=== PATIENT | female | born 2000 | race Caucasian/White ===

== ENCOUNTER 2019-11-23 10:34 | Emergency (ER) | payer OTHER ==
[2019-11-23 10:43] VITALS: BP 132/82
[2019-11-23 10:53] LABS: BILIRUBIN,URINE NEGATIVE (NEGATIVE); GLUCOSE, URINE (UA) NEGATIVE (NEGATIVE); KETONES,URINE (UA) NEGATIVE (NEGATIVE); LEUKOCYTE ESTERASE, URINE NEGATIVE (NEGATIVE); NITRITE,URINE NEGATIVE (NEGATIVE); OCCULT BLOOD,URINE NEGATIVE (NEGATIVE); PROTEIN,URINE NEGATIVE (NEGATIVE); UROBILINOGEN,URINE 0.2 (NORMAL) E.U./dL (NORMAL)
[2019-11-23 10:57] LABS: CLARITY,URINE HAZY (CLEAR); HCG UR QUAL NEGATIVE
[2019-11-23 11:03] LABS: BACTERIA,URINE Rare /HPF (None Seen); RBC,URINE 0-5 /HPF (0-5); SQUAMOUS EPITHELIAL CELL,UR RARE Squamous (<= Few)
[2019-11-23] MEDS ORDERED: DEXAMETHASONE 10 MG/ML VIAL PO STA (12:16)
[2019-11-23] MEDS ORDERED: CHERRY SYRUP 10 ML UDC PO ONE (12:16)
--- NOTE | 2019-11-23 12:29 | ED Physician Documentation ---
PD HPI URI - Stated complaint Stated Complaint: VOMITING/COUGH - Chief complaint Chief Complaint: Resp - History obtained from History obtained from: Patient - History of Present Illness Timing - onset: How many weeks ago (2+) Timing duration: Weeks (2) Timing details: Gradual onset, Still present Associated symptoms: Nasal congestion, Rhinorrhea, Sore throat, Swollen nodes, Productive cough, Other (post tussive emesis) Improves by: Rest Similar symptoms before: Diagnosis (OM and bronchitis) Recently seen: Clinic - Additional information Additional information: 19-year-old female has developed a cough and congestion beginning about 2 weeks ago. She has had a bit of a sore throat that started later she has been into the clinic and has had a's rapid strep which was negative. She has have a prior history of otitis she is had tubes in as a child. She has had persistence of her symptoms and she is having some postnasal drainage she is coughing hard enough that she has had episodes of vomiting. She \does acknowledge some fullness to the right ear. Review of Systems Constitutional: denies: Fever Eyes: denies: Decreased vision Ears: reports: Ear pain Nose: reports: Rhinorrhea / runny nose, Congestion Throat: reports: Sore throat Cardiac: denies: Chest pain / pressure, Palpitations Respiratory: reports: Cough. denies: Dyspnea GI: reports: Vomiting PD PAST MEDICAL HISTORY - Past Medical History Past Medical History: Yes Other Past Medical History: bladder infections as a child - Past Surgical History Past Surgical History: No - Present Medications Home Medications: Ambulatory Orders Medication Instructions Recorded Confirmed Amox/Clav 875/125 [Augmentin] 1 each PO Q12H #20 tablet 11/23/19 Benzonatate [Tessalon Perle] 100 - 200 mg PO TID PRN #30 capsule 11/23/19 - Allergies Allergies/Adverse Reactions: Allergies Allergy/AdvReac Type Severity Reaction Status Date / Time oxybutynin [From Ditropan] Allergy Rash Verified 11/23/19 10:43 - Social History Does the pt smoke?: No Smoking Status: Never smoker Does the pt drink ETOH?: No Does the pt have substance abuse?: No - Immunizations Immunizations are current?: Yes PD ED PE NORMAL - Vitals Vital signs reviewed: Yes (hypertensive mild ) - General General: No acute distress, Well developed/nourished - HEENT HEENT: Atraumatic, PERRL, EOMI, Other (There is tympanosclerosis present bilaterally and there is erythema in the attic on the right side. The pharynx otherwise appears benign there is some postnasal drainage.) - Neck Neck: Supple, no meningeal sign, No bony TTP, Other (tender submandibular adenopathy ) - Cardiac Cardiac: RRR, No murmur - Respiratory Respiratory: No respiratory distress, Clear bilaterally - Abdomen Abdomen: Soft, Non tender - Back Back: No CVA TTP, No spinal TTP - Derm Derm: Normal color, Warm and dry, No rash - Extremities Extremities: No deformity, No edema, No calf tenderness / cord - Neuro Neuro: Alert and oriented X 3, claim trainee 2-12 intact, No motor deficit, No sensory deficit, Normal speech Eye Opening: Spontaneous Motor: Obeys Commands Verbal: Oriented GCS Score: 15 - Psych Psych: Normal mood, Normal affect Results - Vitals Vitals: Vital Signs - 24 hr 11/23/19 10:38 Temperature 36.4 C L Heart Rate 69 Respiratory 18 Rate Blood Pressure 132/82 H O2 Saturation 99 Oxygen O2 Source Room air - Labs Labs: Laboratory Tests 11/23/19 10:46 Urine Color YELLOW Urine Clarity HAZY Urine pH 6.0 Ur Specific [place] <=1.005 Urine Protein NEGATIVE Urine Glucose (UA) NEGATIVE Urine Ketones NEGATIVE Urine Occult Blood NEGATIVE Urine Nitrite NEGATIVE Urine Bilirubin NEGATIVE Urine Urobilinogen 0.2 (NORMAL) Ur Leukocyte Esterase NEGATIVE Urine RBC 0-5 Urine WBC 0-3 Ur Squamous Epith Cells RARE Squamous Urine Bacteria Rare Ur Microscopic Review INDICATED Urine Culture Comments NOT INDICATED Urine HCG, Qual NEGATIVE PD MEDICAL DECISION MAKING - ED course Complexity details: considered differential, d/w patient ED course: 19-year-old female with cough and congestion for past 2 weeks has a lot of postnasal drainage and is coughing hard enough to cause posttussive emesis. On examination she has minimal findings of inflammation with the exception of the right ear and the posterior pharynx. She is administered dexamethasone 10 mg orally and we will place her on some Augmentin. Departure - Departure Disposition: 01 Home, Self Care Clinical Impression: Otitis media Qualifiers: Otitis media type: suppurative Chronicity: acute Laterality: right Recurrence: non-recurrent Spontaneous tympanic membrane rupture: without spontaneous rupture Qualified Code(s): H66.001 - Acute suppurative otitis media without spontaneous rupture of ear drum, right ear Condition: Stable Instructions: ED Otitis Media Acute Adult Follow-Up: Adalid Turner MD [Primary Care Provider] - Prescriptions: Amox/Clav 875/125 [Augmentin] 1 each PO Q12H #20 tablet Benzonatate [Tessalon Perle] 100 - 200 mg PO TID PRN #30 capsule PRN Reason: Cough
== END 2019-11-23 12:45 | disposition home or self-care (01) ==
LOC: ED 10:34
DX: H66.001 Acute suppurative otitis media without spontaneous rupture of ear drum, right ear (principal); H74.03 Tympanosclerosis, bilateral
CPT/HCPCS: 81001; 81025; 99283; 99284; A9270; 81003; 87086

== ENCOUNTER 2019-12-25 13:21 | Emergency (ER) | payer OTHER ==
[2019-12-25 13:29] VITALS: BP 130/79
--- NOTE | 2019-12-25 13:40 | ED Physician Documentation ---
History of Present Illness - Stated complaint Stated Complaint: COUGH/TELLEZ - Chief complaint Chief Complaint: General - History obtained from History obtained from: Patient - History of Present Illness Timing: How many days ago (3) Pain level max: 3 Pain level now: 2 - Additonal information Additional information: 19-year-old female presents to the emergency department with intermittent subjective fevers, dry cough, nasal congestion, sore throat and vomiting for the past 2 to 3 days. No diarrhea. No constipation. Has not taken anything for this at home[place] for evaluation. Patient denies any possibility of . She is not breast- feeding. Not taken any medications at home. Nothing makes it better or worse. PD PAST MEDICAL HISTORY - Past Medical History Past Medical History: No - Past Surgical History Past Surgical History: No - Present Medications Home Medications: Ambulatory Orders Medication Instructions Recorded Confirmed Amox/Clav 875/125 [Augmentin] 1 each PO Q12H #20 tablet 11/23/19 Benzonatate [Tessalon Perle] 100 - 200 mg PO TID PRN #30 capsule 11/23/19 Benzonatate [Tessalon Perle] 100 - 200 mg PO TID PRN #30 capsule 12/25/19 Cetirizine HCl/Pseudoephedrine 1 each PO BID PRN #30 tab.er.12h 12/25/19 [Zyrtec-D Tablet] Ibuprofen [Motrin] 800 mg PO Q8H PRN #30 tablet 12/25/19 Ondansetron Odt [Zofran] 4 mg TL Q6H PRN #10 tablet 12/25/19 - Allergies Allergies/Adverse Reactions: Allergies Allergy/AdvReac Type Severity Reaction Status Date / Time oxybutynin [From Ditropan] Allergy Rash Verified 12/25/19 13:25 - Living Situation Living Arrangement: reports: At home - Social History Does the pt smoke?: No Smoking Status: Never smoker Does the pt drink ETOH?: No Does the pt have substance abuse?: No - Immunizations Immunizations are current?: Yes PD ED PE NORMAL - Vitals Vital signs reviewed: Yes - General General: Alert and oriented X 3, Well developed/nourished - HEENT HEENT: Ears normal, Moist mucous membranes, Pharynx benign - Neck Neck: Supple, no meningeal sign, No adenopathy - Cardiac Cardiac: RRR, Strong equal pulses - Respiratory Respiratory: No respiratory distress, Clear bilaterally - Abdomen Abdomen: Soft, Non tender, Non distended - Derm Derm: Warm and dry, No rash - Neuro Neuro: Alert and oriented X 3 - Psych Psych: Normal mood, Normal affect Results - Vitals Vitals: Vital Signs - 24 hr 12/25/19 13:25 Temperature 37.1 C Heart Rate 100 Respiratory 14 Rate Blood Pressure 130/79 O2 Saturation 98 Oxygen O2 Source Room air PD MEDICAL DECISION MAKING - ED course Complexity details: considered differential, d/w patient ED course: 19-year-old female presents to the emergency part with what appears to be a viral syndrome. She is well-appearing, nontoxic. Afebrile. No hypoxia. No respiratory distress. We will continue supportive care and have her follow-up with her doctor for further care. No evidence of pneumonia, sepsis. Patient counseled regarding signs and symptoms for which I believe and urgent re- evaluation would be necessary. Patient with good understanding of and agreement to plan and is comfortable going home at this time This document was made in part using voice recognition software. While efforts are made to proofread this document, sound alike and grammatical errors may occur. Departure - Departure Disposition: 01 Home, Self Care Clinical Impression: Viral URI with cough Condition: Good Instructions: ED Viral Syndrome Follow-Up: ADRIAN Franco [Provider Group] (in 7-10 days if not better) Prescriptions: Benzonatate [Tessalon Perle] 100 - 200 mg PO TID PRN #30 capsule PRN Reason: Cough Cetirizine HCl/Pseudoephedrine [Zyrtec-D Tablet] 1 each PO BID PRN #30 tab.er.12h PRN Reason: nasal congestion Ibuprofen [Motrin] 800 mg PO Q8H PRN #30 tablet PRN Reason: PAIN &/OR FEVER Ondansetron Odt [Zofran] 4 mg TL Q6H PRN #10 tablet PRN Reason: Nausea / Vomiting Comments: Use the medications as needed. Return if you worsen. This should improve over the next [address] [facility], do not return to work or school until your symptoms have subsided for at least 24 hours. Forms: Activity restrictions
== END 2019-12-25 13:45 | disposition home or self-care (01) ==
LOC: ED 13:21
DX: J06.9 Acute upper respiratory infection, unspecified (principal)
CPT/HCPCS: 99281; 99284

== ENCOUNTER 2022-02-23 18:51 | Emergency (ER) | payer OTHER ==
[2022-02-23] MEDS ORDERED: SODIUM CHLORIDE 0.9% 1,000 ML IV STA (19:30)
[2022-02-23] MEDS ORDERED: KETOROLAC 30 MG/ML VIAL IVP STA (19:30)
[2022-02-23 19:50] LABS: BASOPHILS % (AUTO) 0.3 %; EOSINOPHILS % (AUTO) 0.3 %; HCT - HEMATOCRIT 38.6 % (37.0-47.0); HGB - HEMOGLOBIN 13.2 g/dL (12.0-16.0); LYMPHOCYTES # (AUTO) 1.6 10^3/uL (1.5-3.5); LYMPHOCYTES % (AUTO) 17.9 %; MEAN CORPUSCULAR HEMOGLOBIN 27.3 pg (27.0-31.0); MEAN CORPUSCULAR HGB CONC 34.2 g/dL (32.0-36.0); MEAN CORPUSCULAR VOLUME 79.8 fL (81.0-99.0); MEAN PLATELET VOLUME 9.6 fL (7.9-10.8); MONOCYTES % (AUTO) 11.1 %; NEUTROPHILS # (AUTO) 6.3 10^3/uL (1.5-6.6); NEUTROPHILS % (AUTO) 70.2 %; PLT - PLATELET COUNT 231 10^3/uL (130-450); RED BLOOD COUNT 4.84 10^6/uL (4.20-5.40); RED CELL DISTRIBUTION WIDTH 12.2 % (12.0-15.0)
--- NOTE | 2022-02-23 19:52 | ED Physician Documentation ---
History of Present Illness - Stated complaint Stated Complaint: COUGH,RUNNY NOSE,BLOOD IN STOOL - Chief complaint Chief Complaint: General - History obtained from History obtained from: Patient - Additonal information Additional information: Patient is a 22-year-old female with no significant past medical history presenting for evaluation of blood in her stools that she noticed this evening. She reports having normal colored stools with dark red blood mixed in with it. She also reported having sharp left upper abdominal pain at that also started this evening. She is recently been ill with cough productive of clear phlegm, nasal congestion and sore throat since Wednesday. She denies fever, difficulty breathing or chest pain. No nausea or vomiting. Denies being constipated or diarrhea. Denies dysuria. She is on her menstrual cycle.She has taken a few home COVID test which have been negative. She is not taking other medications. She denies a previous history of blood in her stools.She does not take any blood thinners. Review of Systems Constitutional: denies: Fever Nose: reports: Congestion Throat: reports: Sore throat Cardiac: denies: Chest pain / pressure Respiratory: reports: Cough. denies: Dyspnea GI: reports: Abdominal Pain, Bloody / black stool. denies: Vomiting, Diarrhea : denies: Dysuria Skin: denies: Rash Musculoskeletal: denies: Back pain Neurologic: denies: Headache PD PAST MEDICAL HISTORY - Past Medical History Past Medical History: Yes Psych: ADD/ADHD - Past Surgical History Past Surgical History: No - Present Medications Home Medications: Ambulatory Orders Medication Instructions Recorded Confirmed Dextroamphetamine/Amphetamine 10 mg PO DAILY 02/23/22 02/23/22 [Dextroamp-Amphetamine 5 mg Tab] - Allergies Allergies/Adverse Reactions: Allergies Allergy/AdvReac Type Severity Reaction Status Date / Time oxybutynin [From Ditropan] Allergy Rash Verified 02/23/22 18:56 - Social History Does the pt smoke?: No Smoking Status: Never smoker Does the pt drink ETOH?: No Does the pt have substance abuse?: No - Immunizations Immunizations are current?: Yes PD ED PE NORMAL - General General: Alert and oriented X 3, No acute distress, Well developed/nourished - HEENT HEENT: Atraumatic, Ears normal, Moist mucous membranes, Pharynx benign (No oral swelling or exudate, normal voice) - Neck Neck: Supple, no meningeal sign, No adenopathy - Cardiac Cardiac: No murmur, Strong equal pulses (Tachycardic, regular rhythm) - Respiratory Respiratory: No respiratory distress, Clear bilaterally - Abdomen Abdomen: Normal bowel sounds, Soft, Non distended, Other (Mild left upper quadrant tenderness, No rebound no guarding) - Rectal Rectal: Other (Chaperoned by RAMOS Nathan. Normal external exam, normal colored stool with no palpable masses, normal rectal tone, no tenderness on exam) - Back Back: No CVA TTP - Derm Derm: Warm and dry - Extremities Extremities: No edema - Neuro Neuro: Alert and oriented X 3, No motor deficit, Normal speech - Psych Psych: Normal mood Results - Vitals Vitals: Vital Signs - 24 hr 02/23/22 02/23/22 02/23/22 18:56 20:05 20:56 Temperature 36.5 C 37.0 C Heart Rate 116 H 86 84 Respiratory 16 19 24 Rate Blood Pressure 144/81 H 125/72 111/68 O2 Saturation 98 100 98 02/23/22 21:30 Temperature 37 C Heart Rate 78 Respiratory 21 Rate Blood Pressure 118/62 O2 Saturation 99 Oxygen O2 Source Room air - EKG (time done) 2003 Rate: Rate (enter#) (95) Rhythm: NSR [place]: Normal Ischemia: Non specific changes (T wave flattening in III, V2 and V3). No: ST elevation c/w ischemia - Labs Labs: Microbiology 02/23/22 19:30 Occult Blood - Final Stool Laboratory Tests 02/23/22 02/23/22 02/23/22 19:35 19:35 19:40 WBC 9.0 RBC 4.84 Hgb 13.2 Hct 38.6 MCV 79.8 L MCH 27.3 MCHC 34.2 RDW 12.2 Plt Count 231 MPV 9.6 Neut # (Auto) 6.3 Lymph # (Auto) 1.6 [place] # (Auto) 1.0 Eos # (Auto) 0.0 Baso # (Auto) 0.0 Absolute Nucleated RBC 0.00 Nucleated RBC % 0.0 Sodium Potassium Chloride Carbon Dioxide Anion Gap BUN Creatinine Estimated GFR (MDRD) Glucose Calcium Total Bilirubin AST ALT Alkaline Phosphatase Total Protein Albumin Globulin Albumin/Globulin Ratio Lipase Urine HCG, Qual NEGATIVE Group A Strep Rapid Negative 02/23/22 19:40 WBC RBC Hgb Hct MCV MCH MCHC RDW Plt Count MPV Neut # (Auto) Lymph # (Auto) [place] # (Auto) Eos # (Auto) Baso # (Auto) Absolute Nucleated RBC Nucleated RBC % Sodium 136 Potassium 3.6 Chloride 102 Carbon Dioxide 26 Anion Gap 8.0 BUN 13 Creatinine 0.9 Estimated GFR (MDRD) 78 L Glucose 87 Calcium 9.1 Total Bilirubin 0.7 AST 15 ALT 12 Alkaline Phosphatase 66 Total Protein 6.8 Albumin 3.9 Globulin 2.9 Albumin/Globulin Ratio 1.3 Lipase 36 Urine HCG, Qual Group A Strep Rapid PD MEDICAL DECISION MAKING - ED course Complexity details: reviewed results, re-evaluated patient, d/w patient ED course: Patient is a 22 old female presenting for evaluation of abdominal pain with hematochezia as well as upper respiratory infection symptoms. In regards to her abdominal pain and blood in stools, Hemoccult was positive but no gross blood on exam. A CT scan with questionable colitis. Labs are reassuring. Reviewed these findings with patient. Do not think colitis is bacterial and discussed continuing with supportive care. Patient is aware That she should have a GI referral for possible colonoscopy given blood in her stools as well as aware of return precautions. In regards to her cough and congestion, patient's lung sounds are clear and chest x-ray does not reveal consolidation. Patient does not appear septic. She was slightly tachycardic upon arrival which improved with IV fluids.Do not think her symptoms suggest a pulmonary embolism.COVID swab was obtained. Patient was feeling better in the emergency department. Again discussed continuing with supportive care as well as need for close follow-up. Departure - Departure Disposition: 01 Home, Self Care Clinical Impression: Hematochezia, Viral pharyngitis, Colitis Upper respiratory infection Qualifiers: URI type: unspecified URI Qualified Code(s): J06.9 - Acute upper respiratory infection, unspecified Condition: Stable Instructions: ED Hematochezia Stable, ED Pharyngitis Viral Comments: Hayde - You were evaluated for blood in your stool and abdominal pain. Your labs are reassuring and your hemoglobin (Blood levels) Were stable. You had a CT scan of your abdomen and pelvis which showed some mild inflammation in the lower part of your colon. This could be the source of the blood in your stools.You do need close follow-up with your primary care doctor. You likely need a referral to a publicity consultant and you may need a colonoscopy. You were also evaluated for a cough and congestion. Your strep test was negative. You have a COVID test that is pending. Your chest x-ray was clear and does not show pneumonia.You were given a dose of a steroid to help with the inflammation in your throat and may also help with your cough. Please use [id number] saline spray to help relieve nasal congestion. This may helpYour sore throat and cough as the drainage will be expelled from the nose and not running down the back of your throat. If anytime you have any worsening symptoms such as difficulty breathing, chest pain, worsening abdominal pain, more bleeding, dizziness or have other concerns please return to the emergency department. Your CT scan showed the following. IMPRESSION: 1. Mild segmental wall thickening and sigmoid colon suggestive of a mild colitis. 2. Colonic diverticulosis without acute diverticulitis. 3. Nonspecific splenomegaly. You have a Covid test pending. You need to self quarantine until the result is done and negative. Do not leave your house. Do not get near anybody. The results should be done in 48 to 72 hours. We will call with a positive result, the fastest way to get a negative result for confirmation though is to go to the hospital website at [email or web address], click on the my [email or web address] tab and sign up for the patient portal. If any friends or family get sick and would like to have a Covid test done, but do not have signs or symptoms that would necessitate being hospitalized, there are multiple local options for Covid testing. [facility] keeps an updated list of testing and vaccination options at: [email or web address]. Discharge Date/Time: 02/23/22 21:35
[2022-02-23 20:02] LABS: HCG UR QUAL NEGATIVE
--- NOTE | 2022-02-23 20:05 | XRAY Report ---
PROCEDURE: Chest 1 View X-Ray INDICATIONS: cough TECHNIQUE: One view of the chest was acquired. COMPARISON: None. FINDINGS: Surgical changes and devices: None. Lungs and pleura: No pleural effusions or pneumothorax. Lungs are clear. Mediastinum: Mediastinal contours appear normal. Heart size is normal. Bones and chest wall: No suspicious bony lesions. Overlying soft tissues appear unremarkable. IMPRESSION: 1. No acute cardiopulmonary disease. Reviewed by: Kar Baum MD on 02/23/2022 8:03 PM PDT Approved by: Kar Baum MD on 02/23/2022 8:03 PM PDT Station ID: [id number]
[2022-02-23 20:10] LABS: RAPID STREP SCREEN Negative (Negative)
[2022-02-23 20:10] LABS: ALBUMIN 3.9 g/dL (3.2-5.5); ALBUMIN/GLOBULIN RATIO 1.3 (1.0-2.2); BILIRUBIN,TOTAL 0.7 mg/dL (0.2-1.0); CALCIUM 9.1 mg/dL (8.5-10.3); CREATININE 0.9 mg/dL (0.4-1.0); POTASSIUM 3.6 mmol/L (3.5-5.0); TOTAL PROTEIN 6.8 g/dL (6.7-8.2)
[2022-02-23] MEDS ORDERED: IOVERSOL 320 50 ML VIAL ONE (20:31)
--- NOTE | 2022-02-23 21:08 | CT Report ---
PROCEDURE: Abdomen/Pelvis W INDICATIONS: hematochezia/abd pain CONTRAST: IV CONTRAST: Optiray 320 ml: 100 PO CONTRAST: *NO PO CONTRAST TECHNIQUE: After the administration of intravenous contrast, 5 mm thick sections acquired from the diaphragms to the symphysis. 5 mm thick coronal and sagittal reformats were acquired. For radiation dose reducti on, the following was used: automated exposure control, adjustment of mA and/or kV according to girma ent size. COMPARISON: None. FINDINGS: Image quality: Excellent. ABDOMEN: Lung bases: There are indistinct groundglass opacities inferiorly in the left lower lobe along the le ft hemidiaphragm suggestive of atelectasis versus a mild infectious or inflammatory process. Heart si ze is normal. Solid organs: Evaluation of the liver demonstrates no focal hepatic lesions. Gallbladder appears with in normal limits without calcified gallstones. Biliary system is non dilated. The spleen is enlarged, measuring up to 14.4 cm Pancreas enhances normally without peripancreatic fat stranding or fluid col lections. No adrenal nodules. Kidneys demonstrate no hydronephrosis. Peritoneum and bowel: Small bowel loops demonstrate normal wall thickness and caliber. The appendix i s normal in appearance. There is colonic diverticulosis without acute diverticulitis. There is mild s egmental wall thickening in the sigmoid colon suggestive of a mild colitis. No free fluid or air. Nodes and vessels: No retroperitoneal or mesenteric adenopathy by size criteria. Aorta and inferior vena cava are normal in size. Miscellaneous: No ventral hernias. PELVIS: Genitourinary: Bladder wall thickness is normal. Miscellaneous: No inguinal hernias or adenopathy. Bones: No suspicious bony lesions. No vertebral body compression fractures. IMPRESSION: 1. Mild segmental wall thickening and sigmoid colon suggestive of a mild colitis. 2. Colonic diverticulosis without acute diverticulitis. 3. Nonspecific splenomegaly. Reviewed by: Kar Baum MD on 02/23/2022 9:07 PM PDT Approved by: Kar Baum MD on 02/23/2022 9:07 PM PDT Station ID: [id number]
[2022-02-23] MEDS ORDERED: DEXAMETHASONE 10 MG/ML VIAL PO STA (21:13)
[2022-02-23] MEDS ORDERED: CHERRY SYRUP 10 ML UDC PO ONE (21:13)
[2022-02-23] MEDS ORDERED: IOVERSOL 320 50 ML VIAL IV ONE (21:24)
[2022-02-23 21:32] VITALS: BP 118/62
== END 2022-02-23 21:35 | disposition home or self-care (01) ==
LOC: ED 18:51
DX: K92.1 Melena (principal); J02.8 Acute pharyngitis due to other specified organisms; K52.9 Noninfective gastroenteritis and colitis, unspecified; J06.9 Acute upper respiratory infection, unspecified; Z20.822 Contact with and (suspected) exposure to COVID-19
CPT/HCPCS: 36415; 71045; 74177; 80053; 81025; 82272; 83690; 85025; 87070; 87430; 87635; 93005; 96361; 96374; 99284; A9270

== ENCOUNTER 2023-01-07 16:30 | Outpatient (CLI) | payer OTHER ==
--- NOTE | 2023-01-08 16:58 | XRAY Report ---
PROCEDURE: Chest 2 View X-Ray INDICATIONS: ACUTE COUGH TECHNIQUE: 2 views of the chest were acquired. COMPARISON: 02/23/2022. FINDINGS: Surgical changes and devices: None. Lungs and pleura: No pleural effusions or pneumothorax. Lungs are clear. Mediastinum: Mediastinal contours appear normal. Heart size is normal. Bones and chest wall: No suspicious bony lesions. Overlying soft tissues appear unremarkable. IMPRESSION: No acute cardiopulmonary pathology. Reviewed by: Chaz Griffin MD on 01/08/2023 4:56 PM PDT Approved by: Chaz Griffin MD on 01/08/2023 4:56 PM PDT Station ID: [id number]
== END 2023-01-07 16:31 | disposition home or self-care (01) ==
LOC: DI 16:30
PROVIDERS: ATTEND Registered Nurse
DX: R05.1 Acute cough (principal)

== ENCOUNTER 2023-02-08 07:08 | Emergency (ER) | payer OTHER ==
--- NOTE | 2023-02-08 09:10 | ED Physician Documentation ---
PD HPI URI - Stated complaint Stated Complaint: C+ - Chief complaint Chief Complaint: Resp - History obtained from History obtained from: Patient - Additional information Additional information: She had COVID a couple months ago. Her became symptomatic with COVID yesterday and she has congestion and would like a test. She did take paxlovid when she was sick last time with COVID and did not tolerate it well and would not like to repeat it if she is positive. She does want something for the chest burning and congestion. PD PAST MEDICAL HISTORY - Past Medical History Psych: ADD/ADHD - Past Surgical History Past Surgical History: No - Present Medications Home Medications: Ambulatory Orders Medication Instructions Recorded Confirmed Dextroamphetamine/Amphetamine 10 mg PO DAILY 02/23/22 02/23/22 [Dextroamp-Amphetamine 5 mg Tab] Benzonatate [Tessalon] 200 mg PO TID PRN #20 cap 02/08/23 Guaifenesin/Pseudoephedrne HCl 1 each PO BID PRN #20 tab 02/08/23 [Mucinex D ER 600-60 mg Tablet] Ibuprofen [Motrin] 800 mg PO Q8H PRN #30 tablet 02/08/23 - Allergies Allergies/Adverse Reactions: Allergies Allergy/AdvReac Type Severity Reaction Status Date / Time oxybutynin [From Ditropan] Allergy Rash Verified 02/08/23 07:18 - Social History Does the pt smoke?: No Smoking Status: Never smoker Does the pt drink ETOH?: No Does the pt have substance abuse?: No - Immunizations Immunizations are current?: Yes - POLST Patient has POLST: No PD ED PE NORMAL - Vitals Vital signs reviewed: Yes - General General: Alert and oriented X 3, No acute distress - Respiratory Respiratory: No respiratory distress - Derm Derm: No rash - Neuro Neuro: Alert and oriented X 3, Normal speech Results - Vitals Vitals: Vital Signs - 24 hr 02/08/23 02/08/23 07:18 09:20 Temperature 36.4 C L 36.4 C L Heart Rate 91 81 Respiratory 18 18 Rate Blood Pressure 119/79 120/72 O2 Saturation 98 99 Oxygen O2 Source Room air - Labs Labs: Laboratory Tests 02/08/23 09:10 SARS-CoV-2 (PCR) NOT DETECTED Departure - Departure Disposition: 01 Home, Self Care Clinical Impression: Upper respiratory tract infection Qualifiers: URI type: unspecified viral URI Qualified Code(s): J06.9 - Acute upper respira tory infection, unspecified Condition: Good Record reviewed to determine appropriate education?: Yes Instructions: ED Viral Syndrome Prescriptions: Ibuprofen [Motrin] 800 mg PO Q8H PRN #30 tablet PRN Reason: PAIN &/OR FEVER Guaifenesin/Pseudoephedrne HCl [Mucinex D ER 600-60 mg Tablet] 1 each PO BID PRN #20 tab PRN Reason: congestion Benzonatate [Tessalon] 200 mg PO TID PRN #20 cap PRN Reason: Cough Comments: You have a COVID test pending, we will call you over the next few hours if it is positive. Return for new or worsening symptoms. Discharge Date/Time: 02/08/23 09:20
[2023-02-08 09:21] VITALS: BP 120/72
== END 2023-02-08 09:20 | disposition home or self-care (01) ==
LOC: ED 07:08
DX: J06.9 Acute upper respiratory infection, unspecified (principal); Z20.822 Contact with and (suspected) exposure to COVID-19
CPT/HCPCS: 99282; 99283

== ENCOUNTER 2023-05-05 17:54 | Emergency (ER) | payer OTHER ==
[2023-05-05] MEDS ORDERED: ACETAMINOPHEN 500 MG TABLET PO STA (18:28)
--- NOTE | 2023-05-05 18:28 | ED Physician Documentation ---
PD HPI ABD PAIN - Stated complaint Stated Complaint: PREG/ABD PX/CONSTIPATION - Chief complaint Chief Complaint: Abd Pain - History obtained from History obtained from: Patient - Additional information Additional information: This is a G1 who is at unknown stage of . Last true menses was in January but also had some spotting in February. She is been constipated for several days. Has not taken anything for it other than prune juice as she is scared to take anything although had read that MiraLAX was safe. Over the last 5 days has developed some right lower quadrant pain and burning with urination. Went to walk-in clinic where reported [place] her urine was normal. No cramping or bleeding. PD PAST MEDICAL HISTORY - Past Medical History Past Medical History: Yes Psych: ADD/ADHD - Past Surgical History Past Surgical History: No - Present Medications Home Medications: Ambulatory Orders Medication Instructions Recorded Confirmed Nitrofurantoin [Macrobid] 1 cap PO BID #10 cap 05/05/23 No122/Iron/Folic Acid 1 each PO DAILY 05/05/23 05/05/23 [ Multi Tablet] - Allergies Allergies/Adverse Reactions: Allergies Allergy/AdvReac Type Severity Reaction Status Date / Time oxybutynin [From Ditropan] Allergy Rash Verified 05/05/23 18:07 - Social History Does the pt smoke?: No Smoking Status: Never smoker Does the pt drink ETOH?: No Does the pt have substance abuse?: No - Immunizations Immunizations are current?: Yes - POLST Patient has POLST: No PD ED PE NORMAL - Vitals Vital signs reviewed: Yes - General General: Alert and oriented X 3, No acute distress - Abdomen Abdomen: Normal bowel sounds, Soft, Non tender - Neuro Neuro: Alert and oriented X 3, Normal speech Results - Vitals Vitals: Vital Signs - 24 hr 05/05/23 05/05/23 05/05/23 18:03 19:50 21:00 Temperature 36.7 C Heart Rate 100 84 85 Respiratory 18 16 16 Rate Blood Pressure 139/84 H 123/73 125/73 O2 Saturation 100 100 100 Oxygen O2 Source Room air - Labs Labs: Laboratory Tests 05/05/23 05/05/23 05/05/23 18:25 18:25 18:25 WBC 9.6 RBC 4.86 Hgb 12.9 Hct 38.1 MCV 78.4 L MCH 26.5 L MCHC 33.9 RDW 12.3 Plt Count 279 MPV 9.4 Neut # (Auto) 6.3 Lymph # (Auto) 2.6 [place] # (Auto) 0.6 Eos # (Auto) 0.0 Baso # (Auto) 0.0 Absolute Nucleated RBC 0.00 Nucleated RBC % 0.0 Sodium 134 L Potassium 3.9 Chloride 102 Carbon Dioxide 26 Anion Gap 6.0 BUN 12 Creatinine 0.6 Estimated GFR (MDRD) 123 Glucose 91 Calcium 9.7 Beta HCG, Quant 51822.6 Urine Color Urine Clarity Urine pH Ur Specific [place] Urine Protein Urine Glucose (UA) Urine Ketones Urine Occult Blood Urine Nitrite Urine Bilirubin Urine Urobilinogen Ur Leukocyte Esterase Urine RBC Urine WBC Ur Squamous Epith Cells Urine Bacteria Ur Microscopic Review Urine Culture Comments Urine HCG, Qual 05/05/23 05/05/23 18:33 18:33 WBC RBC Hgb Hct MCV MCH MCHC RDW Plt Count MPV Neut # (Auto) Lymph # (Auto) [place] # (Auto) Eos # (Auto) Baso # (Auto) Absolute Nucleated RBC Nucleated RBC % Sodium Potassium Chloride Carbon Dioxide Anion Gap BUN Creatinine Estimated GFR (MDRD) Glucose Calcium Beta HCG, Quant Urine Color YELLOW Urine Clarity CLEAR Urine pH 5.5 Ur Specific [place] <=1.005 Urine Protein NEGATIVE Urine Glucose (UA) NEGATIVE Urine Ketones TRACE Urine Occult Blood NEGATIVE Urine Nitrite NEGATIVE Urine Bilirubin NEGATIVE Urine Urobilinogen 0.2 (NORMAL) Ur Leukocyte Esterase SMALL H Urine RBC 0-5 Urine WBC 6-10 H Ur Squamous Epith Cells FEW Squamous Urine Bacteria Rare Ur Microscopic Review INDICATED Urine Culture Comments INDICATED Urine HCG, Qual POSITIVE - Rads (name of study) OB Sono Relevant Findings:: Prelim report reviewed, Final report received, EMP independent interpretation of test PD Medical Decision Making - ED course ED course: 23yo with constipation and sx UTI/ Pos UA here. CBC/BMP nl OB sono showing live IUP 7w, d/w pt. Tx miralax and macrobid. Departure - Departure Disposition: 01 Home, Self Care Clinical Impression: Cystitis, 7 weeks gestation of Abdominal pain Qualifiers: Abdominal location: right lower quadrant Qualified Code(s): R10.31 - Right lower quadrant pain Constipation Qualifiers: Constipation type: slow transit constipation Qualified Code(s): K59.01 - Slow transit constipation Condition: Good Record reviewed to determine appropriate education?: Yes Instructions: ED Constipation, ED UTI Cystitis Female Prescriptions: Nitrofurantoin [Macrobid] 1 cap PO BID #10 cap Comments: Today you did have mild evidence of UTI and I am prescribing antibiotics for this. We will perform a urine culture and if a change in antibiotics is necessary we will call you. 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 Returning if worse. You can take MiraLAX per package instructions [id number] for the constipation and drink plenty of fluids. Discharge Date/Time: 05/05/23 21:08
[2023-05-05 18:34] LABS: BASOPHILS % (AUTO) 0.4 %; EOSINOPHILS % (AUTO) 0.3 %; HCT - HEMATOCRIT 38.1 % (37.0-47.0); HGB - HEMOGLOBIN 12.9 g/dL (12.0-16.0); LYMPHOCYTES # (AUTO) 2.6 10^3/uL (1.5-3.5); LYMPHOCYTES % (AUTO) 27.2 %; MEAN CORPUSCULAR HEMOGLOBIN 26.5 pg (27.0-31.0); MEAN CORPUSCULAR HGB CONC 33.9 g/dL (32.0-36.0); MEAN CORPUSCULAR VOLUME 78.4 fL (81.0-99.0); MEAN PLATELET VOLUME 9.4 fL (7.9-10.8); MONOCYTES # (AUTO) 0.6 10^3/uL (0.0-1.0); MONOCYTES % (AUTO) 6.3 %; NEUTROPHILS # (AUTO) 6.3 10^3/uL (1.5-6.6); NEUTROPHILS % (AUTO) 65.5 %; PLT - PLATELET COUNT 279 10^3/uL (130-450); RED BLOOD COUNT 4.86 10^6/uL (4.20-5.40); RED CELL DISTRIBUTION WIDTH 12.3 % (12.0-15.0); WHITE BLOOD COUNT 9.6 x10^3/uL (4.8-10.8)
[2023-05-05 18:39] LABS: HCG UR QUAL POSITIVE
[2023-05-05 18:50] LABS: CALCIUM 9.7 mg/dL (8.5-10.3); CREATININE 0.6 mg/dL (0.6-1.3); POTASSIUM 3.9 mmol/L (3.5-4.5)
[2023-05-05 19:13] LABS: BILIRUBIN,URINE NEGATIVE (NEGATIVE); GLUCOSE, URINE (UA) NEGATIVE (NEGATIVE); KETONES,URINE (UA) TRACE mg/dL (NEGATIVE); LEUKOCYTE ESTERASE, URINE SMALL (NEGATIVE); NITRITE,URINE NEGATIVE (NEGATIVE); OCCULT BLOOD,URINE NEGATIVE (NEGATIVE); PH,URINE 5.5 PH (5.0-7.5); PROTEIN,URINE NEGATIVE (NEGATIVE); UROBILINOGEN,URINE 0.2 (NORMAL) E.U./dL (NORMAL)
[2023-05-05 19:19] LABS: CLARITY,URINE CLEAR (CLEAR)
[2023-05-05 19:25] LABS: BACTERIA,URINE Rare /HPF (None Seen); RBC,URINE 0-5 /HPF (0-5); SQUAMOUS EPITHELIAL CELL,UR FEW Squamous (<= Few)
[2023-05-05] MEDS ORDERED: NITROFURANTOIN MACRO 100 MG CAPSULE PO STA (20:52)
[2023-05-05 21:06] VITALS: BP 125/73
--- NOTE | 2023-05-05 22:08 | Ultrasound Report ---
PROCEDURE: OB First Trimester w/TV INDICATIONS: preg abd pain OUTSIDE/PRIOR DATING DATA: Last menstrual period (LMP): 02/04/2023. LMP-based estimated date of delivery (GEOVANI): 11/11/2023. TECHNIQUE: Real-time scanning was performed of the fetus and maternal pelvic organs, with image documentation. Endovaginal scanning was also performed to better visualize the fetus and maternal ovaries. COMPARISON: None. FINDINGS: Embryo: There is an intrauterine with a gestational sac, yolk sac, and pole identifi ed. The crown-rump length measures 0.9 cm corresponding to a gestational age of 7 weeks 0 days. There is heart motion with a rate of 1 29 bpm. Other: A small perigestational subchorionic hematomas demonstrated measuring 1.7 x 0.7 x 1.47 m.. Measurement variability in dating: +/- 4 weeks by LMP, +/- 7 days by mean sac diameter (use before 6 weeks gestation if crown-rump length not able to be measured), +/- 5 days by crown-rump length (6-12 weeks gestation). Maternal organs: Ovaries appear within normal limits. A small hypoechoic structure compatible with a corpus luteal cyst is noted within the right ovary. IMPRESSION: 1. Single living intrauterine with calculated gestational age of 7 weeks 0 days correspondi ng to an estimated delivery date of 12/22/2023, discordant with patient's dates by LMP. Reviewed by: Kar Baum MD on 05/05/2023 10:07 PM PDT Approved by: Kar Baum MD on 05/05/2023 10:07 PM PDT Station ID: [id number]
== END 2023-05-05 21:08 | disposition home or self-care (01) ==
LOC: ED 17:54
DX: O23.11 Infections of bladder in pregnancy, first trimester (principal); Z3A.01 Less than 8 weeks gestation of pregnancy; O26.91 Pregnancy related conditions, unspecified, first trimester; K59.00 Constipation, unspecified
CPT/HCPCS: 36415; 76801; 76817; 80048; 81001; 81025; 84702; 85025; 87077; 87086; 87181; 99284; A9270; 81003

== ENCOUNTER 2024-04-16 21:41 | Emergency (ER) | payer OTHER ==
[2024-04-16 22:16] LABS: BASOPHILS % (AUTO) 0.4 %; EOSINOPHILS # (AUTO) 0.1 10^3/uL (0.0-0.7); HCT - HEMATOCRIT 41.1 % (37.0-47.0); HGB - HEMOGLOBIN 12.7 g/dL (12.0-16.0); LYMPHOCYTES # (AUTO) 2.9 10^3/uL (1.5-3.5); MEAN CORPUSCULAR HEMOGLOBIN 22.7 pg (27.0-31.0); MEAN CORPUSCULAR HGB CONC 30.9 g/dL (32.0-36.0); MEAN CORPUSCULAR VOLUME 73.4 fL (81.0-99.0); MEAN PLATELET VOLUME 9.2 fL (7.9-10.8); MONOCYTES # (AUTO) 0.5 10^3/uL (0.0-1.0); MONOCYTES % (AUTO) 6.1 %; NEUTROPHILS # (AUTO) 4.9 10^3/uL (1.5-6.6); NEUTROPHILS % (AUTO) 58.3 %; PLT - PLATELET COUNT 288 10^3/uL (130-450); RED CELL DISTRIBUTION WIDTH 13.8 % (12.0-15.0); WHITE BLOOD COUNT 8.4 x10^3/uL (4.8-10.8)
[2024-04-16 22:19] LABS: BILIRUBIN,URINE NEGATIVE (NEGATIVE); GLUCOSE, URINE (UA) NEGATIVE (NEGATIVE); KETONES,URINE (UA) NEGATIVE (NEGATIVE); LEUKOCYTE ESTERASE, URINE NEGATIVE (NEGATIVE); NITRITE,URINE NEGATIVE (NEGATIVE); OCCULT BLOOD,URINE NEGATIVE (NEGATIVE); PH,URINE 6.5 PH (5.0-7.5); PROTEIN,URINE NEGATIVE (NEGATIVE); UROBILINOGEN,URINE 0.2 (NORMAL) E.U./dL (NORMAL)
[2024-04-16 22:22] LABS: CLARITY,URINE CLEAR (CLEAR); HCG UR QUAL NEGATIVE
[2024-04-16 22:43] LABS: ALBUMIN 4.7 g/dL (3.2-5.5); ALBUMIN/GLOBULIN RATIO 1.9 (1.0-2.2); BILIRUBIN,TOTAL 0.4 mg/dL (0.2-1.0); CALCIUM 10.2 mg/dL (8.5-10.3); CREATININE 0.9 mg/dL (0.6-1.3); POTASSIUM 3.7 mmol/L (3.5-4.5); TOTAL PROTEIN 7.2 g/dL (6.4-8.9)
[2024-04-17] MEDS: SODIUM CHLORIDE 0.9% 1,000 ML IV STA (00:25)
[2024-04-17] MEDS: KETOROLAC 30 MG/ML VIAL IVP STA (00:25)
[2024-04-17] MEDS: HYDROmorphone 1 MG/ML CARPUJECT IVP STA (00:25)
--- NOTE | 2024-04-17 01:12 | CT Report ---
PROCEDURE: Abdomen/Pelvis WO INDICATIONS: L flank and lower quad pain TECHNIQUE: A CT scan of the abdomen and pelvis was performed without the use of intravenous contrast. Images we re recorded and evaluated at appropriate window settings. Reformats: coronal and sagittal. For radiat ion dose reduction, the following was used: automated exposure control, adjustment of mA and/or kV ac cording to patient size. COMPARISON: CT abdomen pelvis with contrast 02/23/2022. FINDINGS: Image quality: Diagnostic. Lower chest: Unremarkable. Liver: No contour-deforming mass. Gallbladder: No radiopaque stones or wall thickening. Biliary tree: No intrahepatic or extrahepatic dilation, accounting for age. Spleen: No splenomegaly. Pancreas: No pancreatic ductal dilation. Adrenals: No adrenal nodule. Kidneys and ureters: No hydronephrosis. No contour-deforming mass. Stomach, bowel and peritoneum: No gastric or small bowel dilation. No abnormal wall thickening. No pa thologic free fluid. Normal appendix. Lymph nodes: No central or retroperitoneal adenopathy. Vessels: No infrarenal aortic aneurysm. Reproductive organs: Unremarkable. Bladder: Bladder wall thickness is normal, accounting for underdistention. No calcified bladder stone s. Pelvic lymph nodes: No adenopathy by size criteria. Bones: No aggressive osseous abnormality. Other: No significant ventral or inguinal hernia. IMPRESSION: No hydronephrosis or obstructing renal stone. No acute process in the abdomen or pelvis. Reviewed by: Ayana Luciano MD, PhD on 04/17/2024 1:10 AM PDT Approved by: Ayana Luciano MD, PhD on 04/17/2024 1:10 AM PDT Station ID: [id number]
--- NOTE | 2024-04-17 01:32 | ED Physician Documentation ---
History of Present Illness - Stated complaint Stated Complaint: ABD PX/BACK PX/NAUSEA - Chief complaint Chief Complaint: Abd Pain - History obtained from History obtained from: Patient - Additonal information Additional information: The patient comes to the emergency department chief complaint of nausea, vomiting, and left upper quadrant abdominal pain with intermittent diarrhea for the last 24 hrs. She is held down some clear liquids in between. No history of ulcers or GERD except GERD that she had during . She states she gave to her baby in November of this year. No other complaints at this time. 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 - Present Medications Home Medications: Ambulatory Orders Medication Instructions Recorded Confirmed Dextroamphetamine/Amphetamine 25 mg PO DAILY 04/16/24 04/16/24 [Dextroamp-Amphetamine 5 mg Tab] Fluoxetine HCl [Prozac] 20 mg PO DAILY 04/16/24 04/16/24 HYDROcod/ACETAM 5/325 [[place] 5/325] 1 - 2 tablet PO Q6H PRN #4 tablet 04/17/24 Ondansetron Odt [Zofran] 4 mg TL Q6H PRN #10 tablet 04/17/24 - Allergies Allergies/Adverse Reactions: Allergies Allergy/AdvReac Type Severity Reaction Status Date / Time oxybutynin [From Ditropan] Allergy Rash Verified 04/16/24 21:53 - Social History Does the pt smoke?: No Smoking Status: Never smoker Does the pt drink ETOH?: No Does the pt have substance abuse?: No - Immunizations Immunizations are current?: Yes - POLST Patient has POLST: No PD ED PE NORMAL - Vitals Vital signs reviewed: Yes - General General: Alert and oriented X 3, No acute distress, Well developed/nourished - HEENT HEENT: Atraumatic, PERRL, EOMI, Moist mucous membranes - Neck Neck: Supple, no meningeal sign - Cardiac Cardiac: RRR, No murmur - Respiratory Respiratory: No respiratory distress, Clear bilaterally - Abdomen Abdomen: Soft, Non distended, Other (Left flank and upper and lower quadrant tenderness, mild, no rebound or guarding.) - Derm Derm: Warm and dry - Extremities Extremities: No deformity - Neuro Neuro: Alert and oriented X 3 - Psych Psych: Normal mood, Normal affect Results - Vitals Vitals: Vital Signs - 24 hr 04/16/24 04/17/24 04/17/24 21:45 00:28 01:43 Temperature 36.0 C L Heart Rate 91 60 64 Respiratory 16 18 16 Rate Blood Pressure 134/89 H 127/76 124/68 O2 Saturation 100 98 99 Oxygen O2 Source Room air - Labs Labs: Laboratory Tests 04/16/24 04/16/24 04/16/24 22:05 22:05 22:05 WBC 8.4 RBC 5.60 H Hgb 12.7 Hct 41.1 MCV 73.4 L MCH 22.7 L MCHC 30.9 L RDW 13.8 Plt Count 288 MPV 9.2 Neut # (Auto) 4.9 Lymph # (Auto) 2.9 [place] # (Auto) 0.5 Eos # (Auto) 0.1 Baso # (Auto) 0.0 Absolute Nucleated RBC 0.00 Nucleated RBC % 0.0 Sodium 140 Potassium 3.7 Chloride 104 Carbon Dioxide 29 Anion Gap 7.0 BUN 14 Creatinine 0.9 Estimated GFR (MDRD) 76 L Glucose 99 Calcium 10.2 Total Bilirubin 0.4 AST 12 ALT 14 Alkaline Phosphatase 103 Total Protein 7.2 Albumin 4.7 Globulin 2.5 Albumin/Globulin Ratio 1.9 Lipase 22 Urine Color YELLOW Urine Clarity CLEAR Urine pH 6.5 Ur Specific [place] 1.025 Urine Protein NEGATIVE Urine Glucose (UA) NEGATIVE Urine Ketones NEGATIVE Urine Occult Blood NEGATIVE Urine Nitrite NEGATIVE Urine Bilirubin NEGATIVE Urine Urobilinogen 0.2 (NORMAL) Ur Leukocyte Esterase NEGATIVE Ur Microscopic Review NOT INDICATED Urine Culture Comments NOT INDICATED Urine HCG, Qual 04/16/24 22:05 WBC RBC Hgb Hct MCV MCH MCHC RDW Plt Count MPV Neut # (Auto) Lymph # (Auto) [place] # (Auto) Eos # (Auto) Baso # (Auto) Absolute Nucleated RBC Nucleated RBC % Sodium Potassium Chloride Carbon Dioxide Anion Gap BUN Creatinine Estimated GFR (MDRD) Glucose Calcium Total Bilirubin AST ALT Alkaline Phosphatase Total Protein Albumin Globulin Albumin/Globulin Ratio Lipase Urine Color Urine Clarity Urine pH Ur Specific [place] Urine Protein Urine Glucose (UA) Urine Ketones Urine Occult Blood Urine Nitrite Urine Bilirubin Urine Urobilinogen Ur Leukocyte Esterase Ur Microscopic Review Urine Culture Comments Urine HCG, Qual NEGATIVE - Rads (name of study) CT abdomen pelvis no contrast Relevant Findings:: Final report received, See rad report (neg) PD Medical Decision Making - ED course Complexity details: reviewed results, re-evaluated patient, considered differential, d/w patient ED course: The patient requested something for pain was given doses of Toradol and Dilaudid along with a liter of fluid. She reported feeling better after this. She was no longer nauseated as well. The patient's laboratory studies were unremarkable. She was tender in the left flank and lower quadrant and I felt she should have a CT scan to evaluate for pathology there including kidney stone and diverticulitis. This was done and completely negative. I have advised the patient regarding symptomatic management at home and that I believe this is a viral illness. We discussed home management of symptoms as well as the usual indications for return. Departure - Departure Disposition: Home, Self Care Clinical Impression: Gastroenteritis Abdominal pain Qualifiers: Abdominal location: left upper quadrant Qualified Code(s): R10.12 - Left upper quadrant pain Condition: Stable Instructions: ED Abdominal Pain Female Non-Specific Abdominal Pain, ED Gastroenteritis Viral Prescriptions: HYDROcod/ACETAM 5/325 [[place] 5/325] 1 - 2 tablet PO Q6H PRN #4 tablet PRN Reason: Pain Ondansetron Odt [Zofran] 4 mg TL Q6H PRN #10 tablet PRN Reason: Nausea / Vomiting Comments: Your labs and CT scan look great. There is no evidence of a kidney stone or of diverticulitis. Most likely, you have the same viral illness that is going around the community and causing vomiting and diarrhea. Some people are getting abdominal pain with this 2. In general, viral illnesses will pass on their own and is mainly just a matter of waiting the symptoms out. The most important thing is for you to try to get plenty of clear liquids to drink. You may catch up on eating later but for now, give your stomach a rest in that regard. To help with your symptoms prescription for pain and nausea medication has been electronically transmitted to the [facility] pharmacy in [place], your pharmacy of choice on record. Forms: PCP List, Activity restrictions Discharge Date/Time: 04/17/24 01:45
[2024-04-17 01:52] VITALS: BP 124/68; O2SAT 99
== END 2024-04-17 01:45 | disposition home or self-care (01) ==
LOC: ED 21:41
DX: K52.9 Noninfective gastroenteritis and colitis, unspecified (principal); R10.12 Left upper quadrant pain
CPT/HCPCS: 36415; 74176; 80053; 81003; 81025; 83690; 85025; 96374; 99284; J1170; 81001; 87086

== ENCOUNTER 2024-04-23 19:24 | Emergency (ER) | payer OTHER ==
[2024-04-23 19:51] LABS: BASOPHILS # (AUTO) 0.1 10^3/uL (0.0-0.1); BASOPHILS % (AUTO) 0.5 %; EOSINOPHILS # (AUTO) 0.1 10^3/uL (0.0-0.7); EOSINOPHILS % (AUTO) 0.8 %; HCT - HEMATOCRIT 38.7 % (37.0-47.0); HGB - HEMOGLOBIN 12.5 g/dL (12.0-16.0); LYMPHOCYTES # (AUTO) 3.6 10^3/uL (1.5-3.5); LYMPHOCYTES % (AUTO) 37.3 %; MEAN CORPUSCULAR HEMOGLOBIN 23.4 pg (27.0-31.0); MEAN CORPUSCULAR HGB CONC 32.3 g/dL (32.0-36.0); MEAN CORPUSCULAR VOLUME 72.3 fL (81.0-99.0); MEAN PLATELET VOLUME 9.2 fL (7.9-10.8); MONOCYTES # (AUTO) 0.6 10^3/uL (0.0-1.0); MONOCYTES % (AUTO) 6.6 %; NEUTROPHILS # (AUTO) 5.2 10^3/uL (1.5-6.6); NEUTROPHILS % (AUTO) 54.5 %; PLT - PLATELET COUNT 295 10^3/uL (130-450); RED BLOOD COUNT 5.35 10^6/uL (4.20-5.40); WHITE BLOOD COUNT 9.6 x10^3/uL (4.8-10.8)
[2024-04-23 19:54] LABS: BILIRUBIN,URINE NEGATIVE (NEGATIVE); GLUCOSE, URINE (UA) NEGATIVE (NEGATIVE); KETONES,URINE (UA) NEGATIVE (NEGATIVE); LEUKOCYTE ESTERASE, URINE NEGATIVE (NEGATIVE); NITRITE,URINE NEGATIVE (NEGATIVE); OCCULT BLOOD,URINE NEGATIVE (NEGATIVE); PROTEIN,URINE NEGATIVE (NEGATIVE); UROBILINOGEN,URINE 0.2 (NORMAL) E.U./dL (NORMAL)
[2024-04-23 19:56] LABS: CLARITY,URINE CLEAR (CLEAR); HCG UR QUAL NEGATIVE
[2024-04-23 20:15] LABS: ALBUMIN 4.5 g/dL (3.2-5.5); ALBUMIN/GLOBULIN RATIO 1.6 (1.0-2.2); BILIRUBIN,TOTAL 0.6 mg/dL (0.2-1.0); CALCIUM 9.6 mg/dL (8.5-10.3); CREATININE 0.9 mg/dL (0.6-1.3); POTASSIUM 3.6 mmol/L (3.5-4.5); TOTAL PROTEIN 7.4 g/dL (6.4-8.9)
--- NOTE | 2024-04-23 21:13 | ED Physician Documentation ---
History of Present Illness - Stated complaint Stated Complaint: ABD PX - Chief complaint Chief Complaint: Abd Pain - History obtained from History obtained from: Patient - Additonal information Additional information: The patient returns to the emergency department for chief complaint of worsening epigastric pain that started over a week ago. The patient was seen in our emergency department on April 17 by myself at which time she was treated symptomatically worked up with labs and CT scan of the abdomen and pelvis. At that time, her pain was more in the left side of her abdomen and there was conc davian for either urinary calculus or diverticulitis potentially. She was having intermittent diarrhea at that time and is still having it, she states. Patient states that her breathing starts out as a dull ache in the morning and as long as she does not eat, it stays a dull ache. However, the patient states that as soon as she eats something, she gets a searing/burning pain in her epigastric area which sometimes spreads a little bit to either side. She states that it causes her to vomit. She has not noticed any blood in her vomit. No coffee grounds. No melena. The patient has no history of ulcers that she knows of. She has made an appointment with her primary doctor for May 10 but states that she felt the pain kept getting worse and worse and so she decided to come here. The patient was not found to have any gallstones on her CT last week. She is otherwise healthy as far she knows. She has been taking Tylenol at home for the pain and states it is not helping. No NSAIDs. She is not a smoker. No other complaints at this time. 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 - Present Medications Home Medications: Ambulatory Orders Medication Instructions Recorded Confirmed Dextroamphetamine/Amphetamine 25 mg PO DAILY 04/16/24 04/16/24 [Dextroamp-Amphetamine 5 mg Tab] Fluoxetine HCl [Prozac] 20 mg PO DAILY 04/16/24 04/16/24 HYDROcod/ACETAM 5/325 [[place] 5/325] 1 - 2 tablet PO Q6H PRN #4 tablet 04/17/24 Ondansetron Odt [Zofran] 4 mg TL Q6H PRN #10 tablet 04/17/24 HYDROcod/ACETAM 5/325 [[place] 5/325] 1 - 2 tablet PO Q6H PRN #7 tablet 04/23/24 Omeprazole 20 mg PO DAILY #20 tab 04/23/24 Ondansetron Odt [Zofran] 4 mg TL Q6H PRN #20 tablet 04/23/24 - Allergies Allergies/Adverse Reactions: Allergies Allergy/AdvReac Type Severity Reaction Status Date / Time oxybutynin [From Ditropan] Allergy Rash Verified 04/23/24 20:24 - Social History Does the pt smoke?: No Smoking Status: Never smoker Does the pt drink ETOH?: No Does the pt have substance abuse?: No - Immunizations Immunizations are current?: Yes - POLST Patient has POLST: No PD ED PE NORMAL - Vitals Vital signs reviewed: Yes - General General: Alert and oriented X 3, Other (Patient is not in distress but does appear uncomfortable.) - HEENT HEENT: Atraumatic, PERRL, EOMI, Moist mucous membranes - Neck Neck: Supple, no meningeal sign - Cardiac Cardiac: RRR, No murmur - Respiratory Respiratory: No respiratory distress, Clear bilaterally - Abdomen Abdomen: Soft, Non distended, Other (Palpation of the entire abdomen causes pain in the epigastrium. Marked tenderness noted in the epigastrium without rebound or guarding.) - Derm Derm: Normal color, Warm and dry, No rash - Extremities Extremities: No deformity - Neuro Neuro: Other (Alert and grossly intact.) - Psych Psych: Normal mood, Normal affect Results - Vitals Vitals: Oxygen O2 Source Room air - Labs Labs: Laboratory Tests 04/23/24 04/23/24 04/23/24 19:43 19:48 19:48 WBC 9.6 RBC 5.35 Hgb 12.5 Hct 38.7 MCV 72.3 L MCH 23.4 L MCHC 32.3 RDW 14.0 Plt Count 295 MPV 9.2 Neut # (Auto) 5.2 Lymph # (Auto) 3.6 H [place] # (Auto) 0.6 Eos # (Auto) 0.1 Baso # (Auto) 0.1 Absolute Nucleated RBC 0.00 Nucleated RBC % 0.0 Sodium 139 Potassium 3.6 Chloride 103 Carbon Dioxide 29 Anion Gap 7.0 BUN 13 Creatinine 0.9 Estimated GFR (MDRD) 76 L Glucose 105 H Calcium 9.6 Total Bilirubin 0.6 AST 29 ALT 23 Alkaline Phosphatase 138 H Total Protein 7.4 Albumin 4.5 Globulin 2.9 Albumin/Globulin Ratio 1.6 Lipase 30 Urine Color YELLOW Urine Clarity CLEAR Urine pH 8.0 H Ur Specific [place] 1.020 Urine Protein NEGATIVE Urine Glucose (UA) NEGATIVE Urine Ketones NEGATIVE Urine Occult Blood NEGATIVE Urine Nitrite NEGATIVE Urine Bilirubin NEGATIVE Urine Urobilinogen 0.2 (NORMAL) Ur Leukocyte Esterase NEGATIVE Ur Microscopic Review NOT INDICATED Urine Culture Comments NOT INDICATED Urine HCG, Qual NEGATIVE PD Medical Decision Making - ED course Complexity details: reviewed results, re-evaluated patient, considered differential, d/w patient ED course: The patient was treated symptomatically in the emergency department with IV fluids, droperidol, Dilaudid, and Protonix. She was worked up with repeat labs which showed continued normal white blood cell count and largely normal LFTs with the exception of slight elevation in alk phos which was normal last week. The patient's lipase continues to be normal. I ordered a 1 view chest x-ray, due to the degree of tenderness, to be sure the patient did not have any free air in her diaphragms. Other than this I did not feel that imaging needed to be repeated, based on her negative imaging last week and the lack of concerning laboratory studies. The chest XR was negative. Pt was feeling better, and was stable for d/c home. We have discussed the need for follow-up and the usual indications for return. Departure - Departure Disposition: Home, Self Care Clinical Impression: Abdominal pain Qualifiers: Abdominal location: epigastric Qualified Code(s): R10.13 - Epigastric pain Condition: Stable Instructions: ED Abdominal Pain Female Non-Specific Abdominal Pain Follow-Up: Ji Staley MD [Provider Admit Priv/Credential] - Prescriptions: HYDROcod/ACETAM 5/325 [[place] 5/325] 1 - 2 tablet PO Q6H PRN #7 tablet PRN Reason: Pain Omeprazole 20 mg PO DAILY #20 tab Ondansetron Odt [Zofran] 4 mg TL Q6H PRN #20 tablet PRN Reason: Nausea / Vomiting Comments: Your labs continue to be reassuring, including abdominal labs and white blood cell count, and your chest x-ray does not show any evidence of free air in your abdomen under your diaphragms, which would be concerning for an ulcer that has perforated the wall of your stomach. Your symptoms are concerning for inflammation in the stomach and the bottom of the esophagus, and could also possibly indicate an ulcer. The test that is able to distinguish this would be an endoscopy where a camera is put down your throat to visualize your esophagus, stomach, and the first part of your small intestine. This would need to be done either by a general surgeon or hospital coder. Your primary doctor can refer you for this test; however, I have given you the contact information for the general surgery clinic so that you can contact them and see if you are able to be seen without a referral from your primary doctor. I have prescribed medication to calm your stomach down and to address the pain and nausea. The prescription for these has been electronically transmitted to the [facility] pharmacy in [place]. Forms: PCP List Discharge Date/Time: 04/23/24 22:57
[2024-04-23] MEDS: DROPERIDOL 5 MG/2 ML VIAL IVP STA (21:22)
[2024-04-23] MEDS: SODIUM CHLORIDE 0.9% 1,000 ML IV STA (21:43)
[2024-04-23] MEDS: PANTOPRAZOLE 40 MG VIAL IV STA (21:43)
[2024-04-23] MEDS: HYDROmorphone 1 MG/ML CARPUJECT IVP STA (21:43)
--- NOTE | 2024-04-23 22:18 | XRAY Report ---
PROCEDURE: Chest 1V INDICATIONS: abd/epigastric pain ?perf TECHNIQUE: One view of the chest was acquired. COMPARISON: Chest x-ray 01/07/2023 FINDINGS: Surgical changes and devices: None. Lungs and pleura: No pleural effusions or pneumothorax. Lungs are clear. Mediastinum: Mediastinal contours appear normal. Heart size is normal. Bones and chest wall: No suspicious bony lesions. Overlying soft tissues appear unremarkable. IMPRESSION: No acute cardiopulmonary process. Reviewed by: Ludmila Stinson MD on 04/23/2024 10:16 PM PDT Approved by: Ludmila Stinson MD on 04/23/2024 10:16 PM PDT Station ID: [id number]
[2024-04-23 23:19] VITALS: BP 121/84; O2SAT 98
== END 2024-04-23 22:57 | disposition home or self-care (01) ==
LOC: ED 19:24
DX: R10.13 Epigastric pain (principal)
CPT/HCPCS: 36415; 71045; 80053; 81003; 81025; 83690; 85025; 96374; 96375; 99283; 99284; J1170; 81001; 87086

== ENCOUNTER 2024-06-09 21:11 | Emergency (ER) | payer OTHER ==
--- NOTE | 2024-06-09 22:22 | ED Physician Documentation ---
History of Present Illness - Stated complaint Stated Complaint: ABD PX/BACK PX - Chief complaint Chief Complaint: Abd Pain - Additonal information Additional information: 24yo F w/h/o colitis, cystitis, constipation presents with LUQ abdominal pain. History clarified from triage notes. She states for the last several months, she has had intermittent aching and sharp LUQ pain, sometimes radiating towards her L flank. She is followed by GI and recently had an endoscopy that showed no answer, though has not had a colonoscopy yet. She also reports two CT scans of her abdomen/pelvis in the last 2 months without cause. She is still followed by GI. She gave around 6mo ago. She is having similar pain in the last few hours again and states Dilaudid or Morphine have helped. She has had non bloody N/V. No blood in stools, CP, shortness of breath, lower abdominal pain, dysuria, hematuria, urinary frequency, vaginal discharge or lesions, or other changes. She is not driving. She also states taking PPI has helped in the past. Her aunt has history of pancreatitis. Per chart review, patient had abdomen and pelvis CT in April without acute findings. No renal stone noted per radiology read at the time. CT resulted. Overall reassuring. 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 - Present Medications Home Medications: Ambulatory Orders Medication Instructions Recorded Confirmed Dextroamphetamine/Amphetamine 25 mg PO DAILY 04/16/24 04/16/24 [Dextroamp-Amphetamine 5 mg Tab] Fluoxetine HCl [Prozac] 20 mg PO DAILY 04/16/24 04/16/24 HYDROcod/ACETAM 5/325 [[place] 5/325] 1 - 2 tablet PO Q6H PRN #4 tablet 04/17/24 Ondansetron Odt [Zofran] 4 mg TL Q6H PRN #10 tablet 04/17/24 HYDROcod/ACETAM 5/325 [[place] 5/325] 1 - 2 tablet PO Q6H PRN #7 tablet 04/23/24 Omeprazole 20 mg PO DAILY #20 tab 04/23/24 Ondansetron Odt [Zofran] 4 mg TL Q6H PRN #20 tablet 04/23/24 Pantoprazole [Protonix] 40 mg PO DAILY #14 tablet 06/09/24 - Allergies Allergies/Adverse Reactions: Allergies Allergy/AdvReac Type Severity Reaction Status Date / Time oxybutynin [From Ditropan] Allergy Rash Verified 06/09/24 21:22 - Social History Does the pt smoke?: No Smoking Status: Never smoker Does the pt drink ETOH?: No Does the pt have substance abuse?: No - Immunizations Immunizations are current?: Yes - POLST Patient has POLST: No PD ED PE NORMAL - Free text exam Free text exam: Const: no acute distress, non toxic appearing; calm, conversant, pleasant Eyes: PERRLA, EOMI ENT: mucous membranes moist Neck: supple, non-tender Resp: no respiratory distress, clear to auscultation bilaterally Card: regular rate and rhythm, no murmurs Abd: +focal LUQ tenderness, no other tenderness, negative Vuong's sign, no rigidity or rebound or guarding Back: no T or L spine tenderness, no CVA tenderness bilaterally Extrem: no deformities, no swelling bilateral lower extremities Neuro: ANOx4, 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, grossly intact sensation and strength all extremities Skin: no rash, warm and dry Results - Vitals Vitals: Vital Signs - 24 hr 06/09/24 06/09/24 21:22 23:19 Temperature 36.8 C 36.8 C Heart Rate 90 84 Respiratory 16 16 Rate Blood Pressure 137/68 H O2 Saturation 100 99 Oxygen O2 Source Room air - Labs Labs: Laboratory Tests 06/09/24 06/09/24 06/09/24 22:00 22:26 22:26 WBC 10.2 RBC 5.15 Hgb 12.4 Hct 38.7 MCV 75.1 L MCH 24.1 L MCHC 32.0 RDW 14.1 Plt Count 274 MPV 9.1 Neut # (Auto) 7.3 H Lymph # (Auto) 2.2 [place] # (Auto) 0.7 Eos # (Auto) 0.0 Baso # (Auto) 0.0 Absolute Nucleated RBC 0.00 Nucleated RBC % 0.0 Sodium 139 Potassium 4.0 Chloride 104 Carbon Dioxide 29 Anion Gap 6.0 BUN 12 Creatinine 0.8 Estimated GFR (MDRD) 87 L Glucose 112 H Calcium 9.8 Total Bilirubin 0.9 AST 71 H ALT 46 Alkaline Phosphatase 154 H Total Protein 7.4 Albumin 4.4 Globulin 3.0 Albumin/Globulin Ratio 1.5 Lipase 20 Urine Color YELLOW Urine Clarity CLEAR Urine pH 6.5 Ur Specific [place] 1.025 Urine Protein NEGATIVE Urine Glucose (UA) NEGATIVE Urine Ketones NEGATIVE Urine Occult Blood NEGATIVE Urine Nitrite NEGATIVE Urine Bilirubin NEGATIVE Urine Urobilinogen 0.2 (NORMAL) Ur Leukocyte Esterase NEGATIVE Ur Microscopic Review NOT INDICATED Urine Culture Comments NOT INDICATED Urine HCG, Qual NEGATIVE PD Medical Decision Making - ED course ED course: This patients presentation is most suggestive of gastritis or reflux, IBS, though recent endoscopy argues against PUD, along with a broad differential I have considered including but not limited to pancreatitis, biliary colic, nephrolithiasis, pyelonephritis, constipation, strain, shingles, among others. Her lack of RUQ pain argues against biliary/liver cause. No shingles on exam. No clear urinary symptoms. ACS would be extremely unlikely clinically with palpable LUQ tenderness and age. Her chronic pain argues against acute viral etiology. Her chronic symptoms and fully neurovascularly intact status also argue against vascular etiology. This is not consistent with PNA. I discussed with patient and she would like to NOT obtain CT imaging given multiple recent CT scans and risk of radiation. We will obtain CBC, CMP, lipase, UA, hCG. I will give pantoprazole, GI cocktail, dilaudid if needed and reassess. She is happy with pl an. Labs: CBC with no leukocytosis, anemia, thrombocytopenia. CMP with AST, ALP elevation, no ALT elevation, no bilirubin elevation, lipase WNL and reassuring. UA reassuring. hCG negative. Symptoms fully resolved with PPI and GI cocktail. Patient did not need dilaudid. I re-evaluated her, and she has benign abdomen, no concerns. While she reports recent reassuring endoscopy, this is strongly suggestive of GI cause, such as gastritis, esophagitis, reflux, esoaphgeal spasm. Given her well appearance, toleration of PO, she declines CT still and I agree this is reasonable; we discussed however trial of 14d of daily 40mg PO Pantoprazole (prescribed), along with close outpatient follow up and return precautions. No other new concerns. Results of work up today were discussed with the patient, including lab abnormalities for follow up. Hepatic steatosis is possible; regardless, with no RUQ pain or tenderness, LFT findings suitable for follow up. Patient ambulatory and tolerating PO. Repeat exams and vital signs reassuring. Patient questions answered and plan reviewed. Strong return precautions given. Patient discharged. Departure - Departure Disposition: Home, Self Care Clinical Impression: Abdominal pain Condition: Good Prescriptions: Pantoprazole [Protonix] 40 mg PO DAILY #14 tablet Comments: It was a pleasure taking care of you today. It is important to fully read and understand the below. Please ask us if you have any questions. You felt improved with an acid sangeetha medication and a GI cocktail. I am prescribing you 2 weeks of pantoprazole to take daily. Please see your primary doctor within 3 to 5 days and discuss seeing your sand blaster again to review our workup here. Some of your liver markers are elevated, to discuss outpatient with your doctors. No tests or assessments are perfect, and your condition could change management specialist time. If your symptoms change or worsen, it is very important you immediately seek medical care. If you have any new or worsening pain, lightheadedness or passing out, bleeding, inability to eat or drink, shortness of breath, fever, vomiting, confusion, numbness, weakness, or anything else that concerns you, please immediately seek medical care. If you have been prescribed any medications: please read the drug package inserts on how to properly use the medication and any potential side effects. If you had labs (blood tests) or imaging (CT scan or x-rays) done during your visit: please follow up on the results of these with your primary care doctor, as discussed. In addition, please know the results we received today may be preliminary. Our usual practice is to follow up on tests within a few days of a patient's discharge from the Emergency Department and notify you of any changes. These may lead to changes to your treatment plan. However, the best way to obtain and interpret these test results is through your Primary Care Provider. If you need to update your contact information, please stop by the front desk auxiliary and alert the Registration personnel before you leave the Emergency Department. Thank you for the opportunity to participate in your healthcare. We are always here and happy to see you in the future. Forms: PCP List Discharge Date/Time: 06/09/24 23:29
[2024-06-09 22:30] LABS: BASOPHILS % (AUTO) 0.3 %; EOSINOPHILS % (AUTO) 0.4 %; HCT - HEMATOCRIT 38.7 % (37.0-47.0); HGB - HEMOGLOBIN 12.4 g/dL (12.0-16.0); LYMPHOCYTES # (AUTO) 2.2 10^3/uL (1.5-3.5); LYMPHOCYTES % (AUTO) 21.1 %; MEAN CORPUSCULAR HEMOGLOBIN 24.1 pg (27.0-31.0); MEAN CORPUSCULAR VOLUME 75.1 fL (81.0-99.0); MEAN PLATELET VOLUME 9.1 fL (7.9-10.8); MONOCYTES # (AUTO) 0.7 10^3/uL (0.0-1.0); MONOCYTES % (AUTO) 6.7 %; NEUTROPHILS # (AUTO) 7.3 10^3/uL (1.5-6.6); NEUTROPHILS % (AUTO) 71.2 %; PLT - PLATELET COUNT 274 10^3/uL (130-450); RED BLOOD COUNT 5.15 10^6/uL (4.20-5.40); RED CELL DISTRIBUTION WIDTH 14.1 % (12.0-15.0); WHITE BLOOD COUNT 10.2 x10^3/uL (4.8-10.8)
[2024-06-09] MEDS ORDERED: HYDROmorphone 1 MG/ML CARPUJECT IVP PRN (22:31)
[2024-06-09 22:38] LABS: BILIRUBIN,URINE NEGATIVE (NEGATIVE); GLUCOSE, URINE (UA) NEGATIVE (NEGATIVE); KETONES,URINE (UA) NEGATIVE (NEGATIVE); LEUKOCYTE ESTERASE, URINE NEGATIVE (NEGATIVE); NITRITE,URINE NEGATIVE (NEGATIVE); OCCULT BLOOD,URINE NEGATIVE (NEGATIVE); PH,URINE 6.5 PH (5.0-7.5); PROTEIN,URINE NEGATIVE (NEGATIVE); UROBILINOGEN,URINE 0.2 (NORMAL) E.U./dL (NORMAL)
[2024-06-09] MEDS: LIDOCAINE VISCOUS 2% 15 ML UDC MM STA (22:39)
[2024-06-09] MEDS: PANTOPRAZOLE 40 MG VIAL IV STA (22:40)
[2024-06-09 22:42] LABS: CLARITY,URINE CLEAR (CLEAR); HCG UR QUAL NEGATIVE
[2024-06-09 22:50] LABS: ALBUMIN 4.4 g/dL (3.2-5.5); ALBUMIN/GLOBULIN RATIO 1.5 (1.0-2.2); BILIRUBIN,TOTAL 0.9 mg/dL (0.2-1.0); CALCIUM 9.8 mg/dL (8.5-10.3); CREATININE 0.8 mg/dL (0.6-1.3); TOTAL PROTEIN 7.4 g/dL (6.4-8.9)
[2024-06-09] MEDS: ONDANSETRON 4 MG/2 ML VIAL IVP STA (22:55)
[2024-06-09 23:25] VITALS: BP 137/68; O2SAT 99
== END 2024-06-09 23:29 | disposition home or self-care (01) ==
LOC: ED 21:11
DX: R10.12 Left upper quadrant pain (principal)
CPT/HCPCS: 36415; 80053; 81001; 81003; 81025; 83690; 85025; 87086; 99283; 99284